=== PATIENT | female | born 1955 | race Hispanic/Latino ===

== ENCOUNTER 2016-11-21 09:30 | Outpatient (CLI) | payer BC ==
--- NOTE | 2016-11-21 14:36 | MRI ---
NONCONTRAST ENHANCED MRI IMAGES LUMBAR SPINE: HISTORY: Lumbar radiculopathy, M54.16. FINDINGS: Multiplanar, multisequence, noncontrast-enhanced MRI images lumbar spine obtained. For the purposes of this dictation, the last freely mobile vertebral body will be considered to be t he L5 vertebral body. All other vertebral bodies are numbered according to this. T12-L1: Disk desiccation is seen. There is a mild broad-based disk bulge. No significant evidence of central stenosis is seen. The neural foramen are patent. L1-2, L2-3: Unremarkable. L3-4: There is some moderate facet and ligamentum flavum hypertrophy. No significant evidence of c entral or neural foraminal narrowing seen. L4-5: There is grade anterolisthesis of L4 on L5. Bilateral facet hypertrophy and degenerative blaine nges seen. There is some fluid in the L4-5 facet joints. There is moderate bilateral neural forami nal narrowing due to the anterolisthesis of L4 and L5 as well as the facet hypertrophy. L5-S1: Unremarkable. IMPRESSION: Bilateral L4-5 facet degenerative changes and hypertrophy as well as anterolisthesis of L4 on L5. T here is moderate bilateral neural foraminal narrowing. POS: [facility]
== END 2016-11-21 09:31 | disposition home or self-care (01) ==
LOC: MRI 09:30
PROVIDERS: ATTEND Neurological Surgery
DX: M47.26 Other spondylosis with radiculopathy, lumbar region (principal); M43.16 Spondylolisthesis, lumbar region; M48.061 Spinal stenosis, lumbar region without neurogenic claudication
CPT/HCPCS: 72148

== ENCOUNTER 2018-03-31 12:22 | Outpatient (CLI) | payer BC | END 2018-03-31 12:23 | disposition home or self-care (01) | LOC: BICMAMMO 12:22 | PROVIDERS: ATTEND Obstetrics & Gynecology | DX: Z12.31 Encounter for screening mammogram for malignant neoplasm of breast (principal) | CPT/HCPCS: 77063; 77067 ==

== ENCOUNTER 2018-10-13 14:21 | Emergency (ER) | payer BC, MEDICARE ==
--- NOTE | 2018-10-13 15:41 | ULT ---
Exam: Right lower extremity venous ultrasound with Doppler HISTORY: Right leg erythema, swelling and pain x10 days COMPARISON: None TECHNIQUE: Grayscale, color flow, Doppler imaging and spectral waveform analysis performed the right lower extremity venous system FINDINGS: There is compressibility, presence of flow and augmentation in the common femoral vein, femoral vein and popliteal vein. There is flow in the greater saphenous vein, profunda vein and posterior tibial vein IMPRESSION: No evidence of thrombus in the right lower extremity deep venous system.
== END 2018-10-13 16:40 | disposition home or self-care (01) ==
LOC: ERS 14:21
DX: L03.115 Cellulitis of right lower limb (principal); E78.5 Hyperlipidemia, unspecified; I10 Essential (primary) hypertension; Z79.82 Long term (current) use of aspirin; Z79.899 Other long term (current) drug therapy

== ENCOUNTER 2020-04-11 09:40 | Outpatient (CLI) | payer MEDICARE ==
--- NOTE | 2020-04-11 11:33 | MMO ---
Bilateral MAMMO Bilat Screen [facility]. CLINICAL HISTORY: Patient is 64 years old and is seen for screening. The patient has no family history of breast cancer. The patient has no personal history of cancer. VIEWS: The views performed were: bilateral craniocaudal with tomosynthesis and bilateral mediolateral oblique with tomosynthesis. FILMS COMPARED: The present examination has been compared to prior imaging studies performed at [facility] on 05/22/2011, 03/14/2013, 11/16/2015 and 03/31/2018. This study has been interpreted with the assistance of computer-aided detection. MAMMOGRAM FINDINGS: There are scattered fibroglandular densities. There are no suspicious masses, suspicious calcifications, or new areas of architectural distortion. IMPRESSION: THERE IS NO MAMMOGRAPHIC EVIDENCE OF MALIGNANCY. A ROUTINE FOLLOW-UP MAMMOGRAM IN 1 YEAR IS RECOMMENDED. THE RESULTS OF THIS EXAM WERE SENT TO THE PATIENT. ACR BI-RADS Category 1 - Negative MAMMOGRAPHY NOTE: 1. A negative mammogram report should not delay a biopsy if a dominant of clinically suspicious mass is present. 2. Approximately 10% to 15% of breast cancers are not detected by mammography. 3. Adenosis and dense breasts may obscure an underlying neoplasm. Reported by: YOSSI DEL TORO MD Electonically Signed: [id number]
== END 2020-04-11 09:41 | disposition home or self-care (01) ==
LOC: BICMAMMO 09:40
PROVIDERS: ATTEND Family Medicine
DX: Z12.31 Encounter for screening mammogram for malignant neoplasm of breast (principal)
CPT/HCPCS: 77063; 77067

== ENCOUNTER 2021-08-23 13:40 | Emergency (ER) | payer MEDICARE | END 2021-08-23 16:34 | disposition home or self-care (01) | LOC: ERS 13:40 | DX: L03.115 Cellulitis of right lower limb (principal); I10 Essential (primary) hypertension; E78.5 Hyperlipidemia, unspecified; Z79.82 Long term (current) use of aspirin; Z79.899 Other long term (current) drug therapy ==

== ENCOUNTER 2022-04-04 09:45 | Outpatient (CLI) | payer OTHER | END 2022-04-04 09:46 | disposition home or self-care (01) | LOC: BICMAMMO 09:45 | PROVIDERS: ATTEND Physician Assistant | DX: Z12.31 Encounter for screening mammogram for malignant neoplasm of breast (principal) | CPT/HCPCS: 77063; 77067 ==

== ENCOUNTER 2023-05-14 09:03 | Outpatient (CLI) | payer OTHER | END 2023-05-14 09:04 | disposition home or self-care (01) | LOC: BICCT 09:03 | PROVIDERS: ATTEND Physician Assistant | DX: R31.0 Gross hematuria (principal); N32.89 Other specified disorders of bladder; R60.0 Localized edema | CPT/HCPCS: 74176 ==

== ENCOUNTER 2023-10-06 12:22 | Outpatient (CLI) | payer OTHER ==
[2023-10-06 13:20] LABS: #Basophils 0.03 10x3/uL (0.0-0.2); %Basophils 0.4 % (0.0-1.0); %Eosinophils 1.1 % (0.0-10.0); %Lymphocytes 23.7 % (21.0-51.0); %Monocytes 6.3 % (0.0-10.0); %Neutrophils 68.4 % (42.0-75.0); Hematocrit 39.4 % (36.0-47.0); Hemoglobin 13.2 g/dL (12.0-16.0); Mean Corpuscular HGB CONC 33.5 g/dL (32.0-36.0); Mean Corpuscular Hemoglobin 31.2 pg (27.0-31.0); Mean Corpuscular Volume 93.1 fL (78.0-98.0); Mean Platelet Volume 9.9 fL (7.4-10.4); Platelet Count 259 10x3/uL (130-400); RBC Distribution Width 12.6 % (11.5-14.5); Red Blood Cell (RBC) Count 4.23 mill/uL (4.20-5.40)
[2023-10-06 13:45] LABS: Prothrombin Time 12.7 sec (12.0-14.7)
[2023-10-06 13:46] LABS: PTT 27.7 sec (22.9-36.1)
[2023-10-06 14:59] LABS: Anion Gap 15 mmol/L (10-20); BUN (Urea Nitrogen) 20 mg/dL (9.8-20.1); Calc. Creatinine Clearance 0 mL/min (70-130); Calcium 9.6 mg/dL (7.8-10.44); Carbon Dioxide 24 mmol/L (23-31); Chloride 106 mmol/L (98-107); Estimated GFR 93; Glucose 115 mg/dL (80-115); Potassium 3.7 mmol/L (3.5-5.1); Sodium 141 mmol/L (136-145)
== END 2023-10-06 12:23 | disposition home or self-care (01) ==
LOC: LABBT 12:22
PROVIDERS: ATTEND Urology
DX: Z01.818 Encounter for other preprocedural examination (principal); N39.0 Urinary tract infection, site not specified; R31.21 Asymptomatic microscopic hematuria; R31.0 Gross hematuria
CPT/HCPCS: 80048; 85025; 85610; 85730; 87077; 87086; 87186; 93005; 93010

== ENCOUNTER 2024-01-06 08:47 | Outpatient (CLI) | payer OTHER | END 2024-01-06 08:48 | disposition home or self-care (01) | LOC: BICMAMMO 08:47 | PROVIDERS: ATTEND Physician Assistant | DX: Z12.31 Encounter for screening mammogram for malignant neoplasm of breast (principal) | CPT/HCPCS: 77063; 77067 ==